=== PATIENT | male | born 1970 | race Caucasian/White ===

== ENCOUNTER 2016-07-19 07:00 | Inpatient (IN) | payer OTHER ==
[~2016-07-19] VITALS: Ht 180.3 cm; Wt 84.7 kg
--- NOTE | 2016-08-24 11:53 | PREOPHP ---
DATE OF ADMISSION: 08/30/2016 Thank you very much for allowing me to evaluate this 45-year-old male who is to undergo low back todd taran for the treatment of related low back pain and left leg sciatica. HISTORICAL EVENTS: As you well know, this patient has had progressive disabling pain involving his back and related left radicular pain and weakness involving the left foot. Because of the latter, polly phillip not responded to conservative therapy, he elected to proceed with your recommended surgery. T gareth, he denies cough, wheezing, shortness of breath, substernal chest pain, radiating neck, arm or jaw discomfort at rest or with exertion. He denies nausea, vomiting, abdominal pain, unusual consti pation or diarrhea and denies symptoms of gastrointestinal bleeding with review of systems being unrevealing. MEDICATIONS: Include Zoloft 100 a day. PAST MEDICAL HISTORY: 1. Appendectomy. 2. Right foot surgery. 3. Anxiety. ALLERGIES: NONE. FAMILY HISTORY: Positive for COPD and alcoholism. SOCIAL HISTORY: Does not smoke and socially drinks alcohol. and is employed in [employer]. PHYSICAL EXAMINATION: GENERAL: [place] male in no acute distress. VITAL SIGNS: BP 117/78, respirations were 18, he was afebrile. EYES: Extraocular muscles were full. NOSE, MOUTH, AND THROAT: Normal. NECK: Supple. There was no jugular venous distention, thyroid enlargement or adenopathy. Carotids 2+, no bruits. LUNGS: Clear. HEART: Rhythm regular, no murmur. No third or fourth sound. ABDOMEN: Nontender. Liver and spleen were not palpable. No masses or tenderness were noted. EXTREMITIES: No edema. Calves nontender. NEUROLOGIC: Revealed weak dorsiflexion of the left foot. IMPRESSION: Pending labs, I forsee no problems with your planned surgical intervention , would be glad to follow her postoperatively with you. Dictated By: ALXE CULLEN/SONYA Conf#: [id number] DID#: [id number]
[2016-08-30] VITALS (23 sets, daily range): BP systolic 118–139; BP diastolic 62–88; PULSE 60–83; RESP 9–24; Ht 180.3 cm; Wt 84.7 kg
[2016-08-30] MEDS ORDERED: CEFAZOLIN 2 GM/50 ML (PMX) 50 ML IVPB SCH (06:00)
[2016-08-30] MEDS ORDERED: ONDANSETRON 4 MG INJ ONE (06:38)
[2016-08-30] MEDS ORDERED: FENTAnyl 50 MCG/ML VIAL ONE (06:38)
[2016-08-30] MEDS ORDERED: ROCURONIUM 50 MG INJ ONE (06:38)
[2016-08-30] MEDS ORDERED: SUCCINYLCHOLINE CHLORIDE 100 MG/5 ML SYG IV ONE (06:38)
[2016-08-30] MEDS ORDERED: PROPOFOL 20 ML ONE (06:38)
[2016-08-30] MEDS ORDERED: POLYMYXIN/BACITRACIN 1L IRRIG ONE (06:42)
[2016-08-30] MEDS ORDERED: GELATIN SIZE 100 SPONGE ONE (06:42)
[2016-08-30] MEDS ORDERED: THROMBIN 5000 UNIT VIAL ONE (06:42)
[2016-08-30] MEDS ORDERED: SERT100T PO (06:47)
--- NOTE | 2016-08-30 06:56 | HPN ---
Date/Time of Note Date/Time of Note DATE: 08/30/16 TIME: 06:56 Interval H&P Admission Note Pt. seen H&P reviewed: No system changes MAYRA VALLECILLO MD August 30, 2016 06:56
[2016-08-30] MEDS ORDERED: LIDOCAINE 1% (MPF) 30 ML INJ ONE (07:07)
[2016-08-30] MEDS ORDERED: BUPIVACAINE 0.25% (MPF) 10 ML 10 ML VIAL ONE (07:20)
[2016-08-30] MEDS ORDERED: FENTAnyl 50 MCG/ML VIAL IV PRN ×2 (08:00)
[2016-08-30] MEDS ORDERED: ONDANSETRON 4 MG INJ IV PRN (08:00)
[2016-08-30] MEDS ORDERED: MEPERIDINE 25 MG INJ IV PRN (08:00)
[2016-08-30] MEDS ORDERED: HYDROmorphONE (0.2 MG/ML) 10ML SYG IV PRN ×2 (08:00)
--- NOTE | 2016-08-30 08:18 | RADRPT ---
PROCEDURE: XR Lumbar Spine one view. CLINICAL INDICATION: Low back pain. Intraoperative. TECHNIQUE: Prone portable cross-table lateral. COMPARISON: No prior studies are available for comparison. FINDINGS: For the purposes of this report, the last apparent true disc level is considered to be L5-S1. There is transitional anatomy and careful correlation with prior imaging studies is required to determine the correct level. Based on this, the posterior needle markers are present at the upper L5 and lowe r L5 endplate levels. IMPRESSION: 1. Intraoperative imaging as described above. 2. Note that there is transitional anatomy and careful correlation with prior imaging studies is re quired to determine the correct level. RPTAT: QQ .Isaac Prakash MD, MD Date Time Electronically viewed and signed by .Isaac Prakash MD, on 08/30/2016 08:18 .R/
--- NOTE | 2016-08-30 08:19 | RADRPT ---
PROCEDURE: XR Lumbar Spine one view. CLINICAL INDICATION: Low back pain. Intraoperative. TECHNIQUE: Prone portable cross-table lateral. COMPARISON: Prior study done earlier the same day. FINDINGS: For the purposes of this report, the last apparent true disc level is considered to be L5-S1. There is transitional anatomy and careful correlation with prior imaging studies is required to determine the correct level. Based on this, the posterior surgical device is present at the L5-S1 level. IMPRESSION: 1. Intraoperative imaging as described above. 2. Note that there is transitional anatomy and careful correlation with prior imaging studies is re quired to determine the correct level. RPTAT: QQ .Isaac Prakash MD, MD Date Time Electronically viewed and signed by .Isaac Prakash MD, MD on 08/30/2016 08:19 .R/
[2016-08-30] MEDS: HYDROmorphONE (0.2 MG/ML) 10ML SYG IV PRN ×2 (08:45→08:53)
--- NOTE | 2016-08-30 09:09 | OPR ---
Date/Time of Note Date/Time of Note DATE: 08/30/16 TIME: 09:05 Operative Report Preoperative Diagnosis HNP L5-S1 left Postoperative Diagnosis Same Operation Performed Left hemilaminotomy L5 Microdiscectomy L5-S1 the left Medial facetectomy and foraminotomy L5-S1 on the left Cosmetic wound closure (2.6 cm) Lateral localizing lumbar radiographs (2) Intraoperative nerve monitoring (60 minutes) Surgeon: MAYRA VALLECILLO MD assistant infant toddler teacher: PATEL QUILES Anesthesia: general Anesthesiologist: ALEX GALARZA MD Estimated Blood Loss: 0 - 10 ml's Specimens Disk L5-S1 left Tubes/Drains 2 medium Hemovac drains Complications: None Pt Condition Post Procedure: stable Disposition: PACU Operative\Procedure Findings At surgery, a moderate left paracentral herniation L5-S1 was confirmed. MAYRA VALLECILLO MD August 30, 2016 09:09
[2016-08-30] MEDS: HYDROmorphONE 0.2 MG/ML PCA IV SCH ×2 (09:25→18:11)
[2016-08-30] MEDS ORDERED: TRIMETHOBENZAMIDE 100 MG/ML VIAL IM PRN (09:30)
[2016-08-30] MEDS ORDERED: DIAZEPAM 5 MG/ML SYG IM PRN (09:30)
[2016-08-30] MEDS ORDERED: CEPASTAT LOZENGE MT PRN (09:30)
[2016-08-30] MEDS ORDERED: BETHANECHOL 25 MG TAB PO PRN (09:30)
[2016-08-30] MEDS ORDERED: ZOLPIDEM 5 MG TAB PO PRN (09:30)
[2016-08-30] MEDS ORDERED: DIAZEPAM 5 MG TAB PO PRN (09:30)
[2016-08-30] MEDS ORDERED: HYDROCODONE/APAP (5/325) TAB PO PRN (09:30)
[2016-08-30] MEDS ORDERED: DIPHENHYDRAMINE 50 MG CAP PO PRN (09:30)
[2016-08-30] MEDS ORDERED: NALOXONE (0.4 MG/ML) INJ IV PRN (09:30)
[2016-08-30] MEDS ORDERED: ACETAMINOPHEN 325 MG TAB PO PRN (09:30)
[2016-08-30] MEDS ORDERED: NACL 0.9% 3 ML SYG IV SCH (09:30)
[2016-08-30] MEDS ORDERED: PROCHLORPERAZINE 10 MG TAB PO PRN (09:30)
[2016-08-30] MEDS ORDERED: AL HYDROX/MG HYDROX/SIMETH 30 ML CUP PO PRN (09:30)
--- NOTE | 2016-08-30 10:00 | OPR ---
DATE OF OPERATION: 08/30/2016 PREOPERATIVE DIAGNOSIS: Herniated disk L5-S1 on the left with radiculopathy. POSTOPERATIVE DIAGNOSIS: Herniated disk, L5-S1 on the left, with radiculopathy. OPERATION PERFORMED: 1. Left hemilaminotomy, L5. 2. Microdiskectomy, L5-S1 on the left. 3. Medial facetectomy and foraminotomy, L5-S1 on the left. 4. Cosmetic wound closure (2.6 cm). 5. Lateral localized lumbar radiographs (2). 6. Intraoperative nerve monitoring (60 minutes). SURGEON: Nirav Baltazar MD CORK INSULATOR: ANNA Nova ANESTHESIA: General endotracheal. ANESTHESIOLOGIST: Alex Ring MD ESTIMATED BLOOD LOSS: 10 mL-none replaced. DRAINS: Two medium Hemovac drains employed. COMPLICATIONS: None. PERTINENT HISTORY AND PHYSICAL: This is a 45-year-old male who sustained an injury to his back in t he course of his employment on 08/25/2015. He has had extensive care since that time, has remained symptomatic with back and left leg pain, numbness and weakness which has been refractory to conserva tive management. He has undergone a number of diagnostic studies including an MRI of the lumbar spi ne, which demonstrated herniation of the L5-S1 disk on the left. Treatment options were discussed w ith the patient, who elected to proceed with surgery. OPERATIVE FINDINGS AT SURGERY: A moderate left paracentral herniation L5-S1 was confirmed. The [facility] intraoperative nerve monitoring revealed a decrease in the left L5 potential of 20% and the le ft S1 potential of 40%. These both returned to normal at the completion of surgery. OPERATIVE PROCEDURE: With the patient in supine position after satisfactory induction of general en dotracheal anesthesia by Dr. Ring, the patient was turned to the prone kneeling position on the [facility] frame. All pressure points were carefully padded. Back was prepped and draped in usual ster ile fashion. Athrombic pumps were applied to the legs below the knees to prevent venous stasis duri ng and after the procedure. Two spinal needles were placed next to what was felt to be the L4 and L 5 spinous processes, lateral roentgenogram was taken which confirmed anatomic localization. A 2.6 c m incision then carried out in the midline over the spinous process of L5 after skin was infiltrated with 0.25% Marcaine without epinephrine for postoperative analgesia. Superficial retractors were p laced and hemostasis secured with electrocautery. Throughout the procedure, copious amounts of anti bacterial irrigating solution were used to periodically irrigate the wound. The fascia was incised in midline with a hot knife and unilateral subperiosteal dissection carried out at L5-S1 on the left . Deep retractors were placed and deep hemostasis secured with electrocautery. A second intraopera tive radiograph was taken with deep retractor at what was felt to be the L5-S1 interspace, and this was confirmed with second x-ray. A left hemilaminotomy at L5 was then carried out using Leksell bereket geur, Kerrison punches and curettes. Ligamentum flavum was incised with sharp dissection. The oper ating microscope was moved into place. Medial facetectomy and foraminotomy was accomplished using s mall hand osteotome, mallet, Kerrison punches and curettes. The S1 root was then mobilized medially and protected with [place] nerve root retractor using microdissection technique. This revealed a herniation of the L5-S1 disk on the left. A 15 blade knife used to cut a rectangular window in the annulus and posterior longitudinal ligament and multiple degenerative disk fragments were harvested with pituitary rongeurs and sent to laboratory for pathologic study. Additional fragments were harv ested using Vipin curettes. A thorough search of the floor of the canal was made with an arthrosc opic probe. No additional fragments were encountered. The epidural hemostasis was secured with bip olar electrocautery on low setting. The anesthesiologist was asked to perform a Valsalva maneuver a t 40 mmHg and no spinal fluid leakage was noted. The wound was then closed in layers over 2 medium Hemovac drains, one below the fascia and one above the fascia using #1 Vicryl [id number] approx imating sutures in deep paralumbar musculature and deep fascia of back, 2-0 Vicryl subcutaneous appr oximating sutures in subcu tissue, and a 4-0 Vicryl subcuticular cosmetic closing suture on the skin . Dermabond and sterile compressive dressings were applied. Patient having tolerated procedure wel l, was then turned to supine position onto his bed and extubated by Dr. Ring. He was transported to the recovery room in satisfactory condition. At the conclusion of procedure, sponge, instrument, and needle counts were all correct. NEED FOR CEMENT PATCHER: During this spinal surgical procedure, my fleet assistant was used to retra ct and protect the spinal nerves and dural sac. My fleet assistant also employed the suction catheters to evacuate blood from the surgical field to improve visualization of the neural structures. The assist ant was medically necessary to facilitate the completion of the surgery in a safe and expeditious ma nner. [facility] regulations, as well as hospital bylaws, preclude the use of non-licensed health care personnel such as operating room technicians, to perform these functions. Throughout the procedure, neural monitoring was carried out by [employer] including EMG, SSEP and MEP monitoring of the L3, L4, L5 and S1 nerve roots bilaterally along with s manny cord potentials. These were interpreted by neurologist employed by [employer]. Dictated By: NIRAV BALTAZAR MD TM/NTS Conf#: [id number] DID#: [id number] CC: ALEX CASTANEDA MD;*End*
[2016-08-30] MEDS: DEXTROSE 5%-0.45% NACL 1,000 ML IV SCH ×4 (10:08→21:20)
--- NOTE | 2016-08-30 11:19 | CONS ---
DATE OF ADMISSION: 08/30/2016 DATE OF CONSULTATION: REASON FOR CONSULTATION: Thank you, Dr. Baltazar, for asking me to participate in medical managemen t of this patient. This patient is being seen to manage his anxiety and left foot drop. HISTORY OF PRESENT ILLNESS: This 45-year-old man is now postop a lumbar spine surgery today by Dr. Baltazar. The patient underwent a left hemilaminectomy at L5, microdiskectomy at L5-S1 on the left for a herniated nucleus pulposus at L5-S1 level. The patient is awake and alert. He denies any basil st pain or shortness of breath. He said that the incisional back pain is decreasing. The patient w as injured at work which precipitated his low back pain and eventually left leg sciatica and left fo ot drop. PAST MEDICAL HISTORY: Generalized anxiety disorder. CURRENT MEDICATIONS: Zoloft 100 mg a day, which he takes every morning. SOCIAL HISTORY: He does not smoke, drinks alcohol socially. He is . ALLERGIES: HE HAS NO KNOWN DRUG ALLERGIES. PAST SURGICAL HISTORY: Appendectomy, right foot surgery, fractured toe. PHYSICAL EXAMINATION: GENERAL: At this time reveals a well-developed man in no apparent distress. VITAL SIGNS: Blood pressure 126/68, O2 saturation 96% on room air, pulse of 76. HEAD: Normocephalic. EYES: Extraocular muscles intact. NOSE AND MOUTH: Normal. NECK: Supple. No neck vein distention. LUNGS: Clear to auscultation. HEART: Regular rhythm. No murmurs, gallops or rubs. ABDOMEN: Soft, nontender. EXTREMITIES: No peripheral edema. IMPRESSION: This patient is doing well postoperatively. He seems calm and comfortable. The patien t usually takes Zoloft every morning, but did not take it this morning preoperatively. I will manag e the patient's anxiety. PLAN: 1. Resume Zoloft 100 mg a day, start now. 2. Routine lumbar spine surgery protocol. 3. Check labs in the morning. 4. I will follow the patient along with you. Dictated By: JENNIFFER BUCK MD, ND/SONYA Conf#: [id number] DID#: [id number]
[2016-08-30] MEDS: CEFAZOLIN 1 GM/50 ML (PMX) 50 ML IVPB SCH ×3 (11:27→23:10)
[2016-08-30] MEDS: SERTRALINE 100 MG TAB PO SCH (11:27)
[2016-08-30] MEDS: ONDANSETRON 4 MG INJ IV PRN ×2 (14:30→23:07)
[2016-08-30] MEDS: RANITIDINE 150 MG TAB PO SCH (21:17)
[2016-08-31 00:15] VITALS: BP 121/73; RESP 20
[2016-08-31 06:01] LABS: CALCIUM 8.1 mg/dl (8.4-10.2); CREATININE 0.74 mg/dl (0.61-1.24); POTASSIUM 3.7 mmol/L (3.5-5.1)
[2016-08-31 06:07] LABS: HEMATOCRIT 39.5 % (42.0-52.0); HEMOGLOBIN 13.5 g/dl (14.0-18.0)
[2016-08-31] MEDS: CEFAZOLIN 1 GM/50 ML (PMX) 50 ML IVPB SCH (06:20)
--- NOTE | 2016-08-31 07:04 | PN ---
Date/Time of Note Date/Time of Note DATE: 08/31/16 TIME: 06:56 Assessment/Plan Lines/Catheters IV Catheter Type (from Nrsg): Saline Lock Kwon in Place (from Nrsg): No Subjective 24 Hr Interval Summary The patient is postop day #1 following a microdiscectomy at L5-S1 on the left. He is resting comfortably in bed. He is afebrile his a.m. labs are normal neurovascular structures are intact distally. Hemovac drainage was minimal, and it was discontinued. The wound is clean and dry and was redressed. I anticipate he will be discharged later today upon being cleared by physical therapy. He was given strict discharge precautions and instructions. We'lll see him in the office 1-2 weeks postop. Exam/Review of Systems Vital Signs Vitals Vital Signs Date Time Temp Pulse Resp B/P Pulse Ox O2 Delivery O2 Flow Rate FiO2 08/31/16 05:49 18 08/31/16 00:15 98.1 70 121/73 96 08/30/16 20:00 Nasal Cannula 2.0 Intake and Output 08/30/16 08/30/16 08/31/16 15:00 23:00 07:00 Intake Total 750 ml 1610 ml 1400 ml Output Total 35 ml 310 ml 2625 ml Balance 715 ml 1300 ml -1225 ml Results Result Diagram: 08/31/16 0420 08/31/16 0420 MAYRA VALLECILLO MD August 31, 2016 07:04
[2016-08-31 07:19] VITALS: BP 116/70; RESP 19
[2016-08-31] MEDS ORDERED: BETHANECHOL 25 MG TAB PO PRN (08:00)
[2016-08-31] MEDS: SERTRALINE 100 MG TAB PO SCH (08:13)
[2016-08-31] MEDS: RANITIDINE 150 MG TAB PO SCH (08:13)
[2016-08-31] MEDS: FERROUS SULFATE (EC) 325 MG TAB PO SCH ×2 (08:13→12:15)
[2016-08-31] MEDS: HYDROCODONE/APAP (5/325) TAB PO PRN ×2 (08:14→13:14)
--- NOTE | 2016-08-31 08:50 | CONS ---
Date/Time of Note Date/Time of Note DATE: 08/31/16 TIME: 08:47 Assessment/Plan Assessment/Plan Chief Complaint/Hosp Course 1. He is 1 day post op a lumbar spine surgery . He has no complaints . 2. He can be discharged today if cleared by PT . Problems: Consultation Date/Type/Reason Admit Date/Time August 30, 2016 at 05:15 Initial Consult Date Type of Consultation: medicine 24 HR Interval Summary Free Text/Dictation He has no complaints Constitutional: improved, no complaints Exam/Review of Systems Vital Signs Vitals Vital Signs Date Time Temp Pulse Resp B/P Pulse Ox O2 Delivery O2 Flow Rate FiO2 08/31/16 07:19 98.0 65 19 116/70 98 08/30/16 20:00 Nasal Cannula 2.0 Intake and Output 08/30/16 08/30/16 08/31/16 15:00 23:00 07:00 Intake Total 750 ml 1610 ml 1400 ml Output Total 35 ml 310 ml 2625 ml Balance 715 ml 1300 ml -1225 ml Exam Constitutional: alert, oriented, well developed Respiratory: clear to auscultation, normal air movement Cardiovascular: nl pulses, regular rate and rhythm Gastrointestinal: soft Musculoskeletal: nl extremities to inspection Results Result Diagram: 08/31/16 0420 08/31/16 0420 Results 24 hrs Laboratory Tests Test 08/31/16 04:20 Hemoglobin 13.5 L Hematocrit 39.5 L Sodium Level 137 Potassium Level 3.7 Chloride Level 106 Carbon Dioxide Level 27 Anion Gap 8 Blood Urea Nitrogen 10 Creatinine 0.74 Glucose Level 103 Calcium Level 8.1 L Medications Medications Current Medications Dextrose/Sodium Chloride (D5-1/2ns) 1,000 ml @ 100 mls/hr Q10H IV Last administered on 08/30/16 21:20; Admin Dose 100 MLS/HR; Start 08/30/16 at 09:01 Acetaminophen/ Hydrocodone Bitart ([place] (5/325)) 1 tab Q4H PRN PO PAIN LEVEL 1 -5; Start 08/30/16 at 09:30 Acetaminophen/ Hydrocodone Bitart ([place] (5/325)) 2 tab Q4H PRN PO PAIN LEVEL 6 -10 Last administered on 08/31/16 08:14; Admin Dose 2 TAB; Start 08/30/16 at 09 :30 Zolpidem Tartrate (Ambien) 5 mg HS PRN PO INSOMNIA; Start 08/30/16 at 09:30 Prochlorperazine (Compazine) 10 mg Q4H PRN PO NAUSEA AND/OR VOMITING; Start at 09:30 Trimethobenzamide HCl (Tigan) 200 mg Q4H PRN IM NAUSEA AND/OR VOMITING Last administered on 08/30/16 17:34; Admin Dose 200 MG; Start 08/30/16 at 09:30 Ondansetron HCl (Zofran Inj) 4 mg Q6H PRN IV NAUSEA AND/OR VOMITING Last administered on 08/30/16 23:07; Admin Dose 4 MG; Start 08/30/16 at 09:30 Al Hydrox/Mg Hydrox/Simethicone (Mag-Al Plus) 15 ml Q4H PRN PO CONSTIPATION; Start 08/30/16 at 09:30 Docusate Sodium (Colace) 100 mg BID PO Last administered on 08/31/16 08:13; Admin Dose 100 MG; Start 08/31/16 at 09:00 Acetaminophen (Tylenol Tab) 650 mg Q4H PRN PO TEMP GREATER THAN 101F OR GARRISON Last administered on 08/30/16 17:39; Admin Dose 650 MG; Start 08/30/16 at 09:30 Ascorbic Acid (Vitamin C) 1,000 mg BID PO Last administered on 08/31/16 08:13 ; Admin Dose 1,000 MG; Start 08/31/16 at 09:00 Ferrous Sulfate (Ferrous Sulfate (Ec)) 325 mg TID PO Last administered on 08:13; Admin Dose 325 MG; Start 08/31/16 at 09:00 Ranitidine HCl (Zantac) 150 mg BID PO Last administered on 08/31/16 08:13; Admin Dose 150 MG; Start 08/30/16 at 21:00 Diazepam (Valium) 5 mg Q4H PRN PO MUSCLE SPASMS; Start 08/30/16 at 09:30 Diazepam (Valium) 5 mg Q4H PRN IM MUSCLE SPASMS; Start 08/30/16 at 09:30 Phenol (Cepastat Lozenge) 1 lozenge PRN PRN MT SORE THROAT; Start 08/30/16 at 09:30 Bethanechol Chloride (Urecholine) 25 mg PRN PRN PO UNABLE TO VOID Last administered on 08/30/16 18:44; Admin Dose 25 MG; Start 08/30/16 at 09:30 Diphenhydramine HCl (Benadryl) 50 mg Q6H PRN PO PRURITUS; Start 08/30/16 at 09: 30 Hydromorphone HCl (Dilaudid BAGGING MACHINE OPERATOR) Q4PCA IV Last administered on 08/30/16 18:11 ; Admin Dose 6 MG; Start 08/30/16 at 09:30 Naloxone HCl (Narcan) 0.2 mg Q2M PRN IV RR 8 BREATHS/MIN OR LESS; Start at 09:30 Sertraline HCl (Zoloft) 100 mg DAILY PO Last administered on 08/31/16 08:13; Admin Dose 100 MG; Start 08/30/16 at 11:00 Bethanechol Chloride (Urecholine) 25 mg PRN PRN PO UNABLE TO VOID; Start at 08:00 JENNIFFER BUCK MD August 31, 2016 08:50
[2016-08-31] MEDS ORDERED: DOCUSATE SODIUM 100 MG CAP PO SCH (09:00)
[2016-08-31] MEDS ORDERED: ASCORBIC ACID 500 MG TAB PO SCH (09:00)
[2016-08-31 10:44] VITALS: BP 132/70; PULSE 73; RESP 18
== END 2016-08-31 13:42 | disposition home or self-care (01) | DRG 520 ==
LOC: REC 08-30 05:15 → MS1 08-30 09:47
PROVIDERS: ADMIT Orthopaedic Surgery; ATTEND Orthopaedic Surgery
PROC: 0SB40ZZ Excision of Lumbosacral Disc, Open Approach (ICD-10-PCS; principal; 2016-08-30 07:00)
DX: M51.17 Intervertebral disc disorders with radiculopathy, lumbosacral region (principal); F41.1 Generalized anxiety disorder; M21.372 Foot drop, left foot; F41.8 Other specified anxiety disorders
CPT/HCPCS: 72020; 80048; 85014; 85018; 97116; 97163; 97530; J0690; J1170; J2175; J2405; J3010; J3250; J7042; J7999